=== PATIENT | female | born 1980 | race Caucasian/White ===

== ENCOUNTER 2017-10-06 23:42 | Emergency (ER) | payer SELFPAY ==
[~2017-10-06] VITALS: Ht 162.6 cm; Wt 59.0 kg
[2017-10-06] MEDS ORDERED: LACTATED RINGERS 1,000 ML IV ONE (23:55)
[2017-10-07] MEDS ORDERED: PANTOPRAZOLE 40 MG/10 ML (PROTONIX) VIAL IV ONE
[2017-10-07] MEDS ORDERED: ONDANSETRON 4 MG/2 ML (SDV) Z0FRAN IVP ONE
[2017-10-07] MEDS ORDERED: SCOPOLAMINE 1.5 MG (TRANSDERM-SCOP) PATCH TD ONE
--- NOTE | 2017-10-07 00:04 | ED GI ---
General Chief Complaint: Abdominal/GI Problems Stated Complaint: SYNCOPE N/V Nursing Triage Note: N/V and dizziness that began approx 1 hr ago while at [facility]. Sepsis Screen: No Definite Risk Source of Information: Patient, EMS History of Present Illness Time Seen By Provider: 23:45 Initial Comments PT ARRIVES VIA EMS FROM [facility]--LIVES IN [place], [place] PT STATES SHE HAD "5 [facility] ( NORMAL AMOUNT FOR PATIENT, AND DRINKS DAILY-"A COUPLE OF BEERS' ) SHE WAS DRINKING THE LAST BEER, SHE BEGAN TO FEEL NAUSEATED AND BEGAN VOMITING STATES SHE VOMITED BETWEEN 8 AND 12 TIMES "CONTINUOUS" PER PT NO DIARRHEA NO ABDOMINAL PAIN PT DENIES SYNCOPE. STATES "I JUST GOT SICK AND I WET MYSELF" C/O DIZZINESS AND NAUSEA WITH ANY MOVEMENTS PT HAS HISTORY OF METH USE-DENIES USE SINCE WAS ADMITTED TO PSYCH UNIT AT [place] IN [place] 06/2017 AND STATES SHE HAS NOT USED DRUGS SINCE THEN STATES SHE HAS LONG HISTORY OF DRUG ABUSE, BUT HAD NOT USED FOR SEVERAL YEARS, THEN HAD A RELAPSE THIS SUMMER , BEFORE SHE WAS ADMITTED TO [facility] [place]. LMP 09/24/17. NORMAL . NO CONTROL PCP: [facility] [place] [place] Allergies and Home Medications Allergies Coded Allergies: No Known Drug Allergies (Unverified , 10/06/17) Home Medications Ondansetron 4 Mg Tab.rapdis, 4 MG PO Q4H, #10 Prescribed by: DEVORAH PERDOMO on 10/07/17 0117 Review of Systems Constitutional: no symptoms reported EENTM: No Symptoms Reported Respiratory: No Symptoms Reported Cardiovascular: No Symptoms Reported Gastrointestinal: See HPI, Denies Abdominal Pain, Denies Diarrhea, Nausea, Vomiting Genitourinary: No Symptoms Reported Musculoskeletal: no symptoms reported Skin: no symptoms reported Psychiatric/Neurological: No Symptoms Reported Endocrine: No Symptoms Reported Hematologic/Lymphatic: No Symptoms Reported Past Fzgtdwz-Gbwsyi-Kcepkf Hx Patient Social History Alcohol Use: Regular Use (DRINKS "A COUPLE OF BEERS" EVERY DAY, PER PT --MALE S.O. REPORTS THAT PT DRINKS "18 BEERS A DAY" ) Number of Drinks Today: 4 Alcohol Beverage of Choice: Beer Recreational Drug Use: Yes (HISTORY OF METH USE, DENIES IV USE--STATES NO USE SINCE 06/2017, PER PT ON 10/07/17) Smoking Status: Current Everyday Smoker Type Used: Cigarettes 2nd Hand Smoke Exposure: No Recent Foreign Travel: No Contact w/Someone Who Travel: No Recent Infectious Disease Expo: No Physical Abuse: No Sexual Abuse: No Mistreated: No Fear: No Immunizations Up To Date Tetanus Booster (TDap): Unknown Surgeries History of Surgeries: Yes ( X 4) Surgeries: Section Respiratory History of Respiratory Disorde: No Cardiovascular History of Cardiac Disorders: No Neurological History of Neurological Disord: No Reproductive System : No (NO CONTROL) Last Menstrual Period: Sep 24, 2017 Hx : 4 Hx Para: 4 Female Reproductive Disorders: Denies Genitourinary History of Genitourinary Disor: No Gastrointestinal History of Gastrointestinal Di: No Musculoskeletal History of Musculoskeletal Dis: No Endocrine History of Endocrine Disorders: No HEENT History of HEENT Disorders: No Cancer History of Cancer: No Psychosocial History of Psychiatric Problem: Yes (SUBSTANCE ABUSE; PSYCH ADMIT 06/2017- [facility] IN [place]) Behavioral Health Disorders: Anxiety, Depression Suicide Risk Score: 1 Integumentary History of Skin or Integumenta: No Blood Transfusions History of Blood Disorders: No Physical Exam Vital Signs VS - Last 72 Hours, by Label 10/06/17 10/07/17 23:42 01:20 Temp 97.0 Pulse 85 74 Resp 18 18 B/P (MAP) 143/110 (121) Pulse Ox 97 99 O2 Delivery Room Air Room Air Capillary Refill : Less Than 3 Seconds General Appearance: WD/WN, other (EMOTIONAL LABILITY--CRYING THEN LAUGHING, THEN BACK TO CRYING--CRIED WHEN EMS STAFF LEFT THE ER, ETC. SPEECH CLEAR. ) HEENT: PERRL/EOMI Neck: normal inspection Respiratory: normal breath sounds, no respiratory distress, no accessory muscle use Cardiovascular: regular rate, rhythm, no murmur Gastrointestinal: normal bowel sounds, non tender, soft Extremities: normal inspection Back: normal inspection Neurologic/Psychiatric: chiropractor sole practitioner II-XII nml as tested, no motor/sensory deficits, alert, oriented x 3, other ( ABOVE) Skin: normal color, warm/dry, other (NO EXTERNAL EVIDENCE OF TRAUMA ANYWHERE) Progress/Results/Core Measures Results/Orders Lab Results Laboratory Tests Test 10/06/17 23:45 10/07/17 00:28 Range/Units White Blood Count 9.1 4.3-11.0 10^3/uL Red Blood Count 4.27 L 4.35-5.85 10^6/uL Hemoglobin 13.0 11.5-16.0 G/DL Hematocrit 38 35-52 % Mean Corpuscular Volume 89 80-99 FL Mean Corpuscular Hemoglobin 30 25-34 PG Mean Corpuscular Hemoglobin Concent 34 32-36 G/DL Red Cell Distribution Width 13.5 10.0-14.5 % Platelet Count 318 130-400 10^3/uL Mean Platelet Volume 9.3 7.4-10.4 FL Neutrophils (%) (Auto) 59 42-75 % Lymphocytes (%) (Auto) 32 12-44 % Monocytes (%) (Auto) 7 0-12 % Eosinophils (%) (Auto) 2 0-10 % Basophils (%) (Auto) 1 0-10 % Neutrophils # (Auto) 5.4 1.8-7.8 X 10^3 Lymphocytes # (Auto) 2.9 1.0-4.0 X 10^3 Monocytes # (Auto) 0.6 0.0-1.0 X 10^3 Eosinophils # (Auto) 0.2 0.0-0.3 10^3/uL Basophils # (Auto) 0.1 0.0-0.1 10^3/uL Sodium Level 139 135-145 MMOL/L Potassium Level 3.5 L 3.6-5.0 MMOL/L Chloride Level 103 98-107 MMOL/L Carbon Dioxide Level 23 21-32 MMOL/L Anion Gap 13 5-14 MMOL/L Blood Urea Nitrogen 9 7-18 MG/DL Creatinine 0.71 0.60-1.30 MG/DL Estimat Glomerular Filtration Rate > 60 BUN/Creatinine Ratio 13 Glucose Level 85 70-105 MG/DL Calcium Level 8.8 8.5-10.1 MG/DL Magnesium Level 2.4 1.8-2.4 MG/DL Total Bilirubin 0.2 0.1-1.0 MG/DL Aspartate Amino Transf (AST/SGOT) 23 5-34 U/L Alanine Aminotransferase (ALT/SGPT) 22 0-55 U/L Alkaline Phosphatase 62 40-136 U/L Total Protein 6.9 6.4-8.2 GM/DL Albumin 4.0 3.2-4.5 GM/DL Amylase Level 57 25-125 U/L Serum Test, Qualitative NEGATIVE NEGATIVE Serum Alcohol 196 H <10 MG/DL Urine Color YELLOW Urine Clarity CLEAR Urine pH 6 5-9 Urine Specific [place] 1.015 L 1.016-1.022 Urine Protein NEGATIVE NEGATIVE Urine Glucose (UA) NEGATIVE NEGATIVE Urine Ketones NEGATIVE NEGATIVE Urine Nitrite NEGATIVE NEGATIVE Urine Bilirubin NEGATIVE NEGATIVE Urine Urobilinogen NORMAL NORMAL MG/DL Urine Leukocyte Esterase NEGATIVE NEGATIVE Urine RBC (Auto) NEGATIVE NEGATIVE Urine RBC NONE /HPF Urine WBC NONE /HPF Urine Squamous Epithelial Cells 2-5 /HPF Urine Crystals NONE /LPF Urine Bacteria TRACE /HPF Urine Casts NONE /LPF Urine Mucus NEGATIVE /LPF Urine Culture Indicated NO Urine Opiates Screen NEGATIVE NEGATIVE Urine Oxycodone Screen NEGATIVE NEGATIVE Urine Methadone Screen NEGATIVE NEGATIVE Urine Propoxyphene Screen NEGATIVE NEGATIVE Urine Barbiturates Screen NEGATIVE NEGATIVE Ur Tricyclic Antidepressants Screen NEGATIVE NEGATIVE Urine Phencyclidine Screen NEGATIVE NEGATIVE Urine Amphetamines Screen NEGATIVE NEGATIVE Urine Methamphetamines Screen NEGATIVE NEGATIVE Urine Benzodiazepines Screen NEGATIVE NEGATIVE Urine Cocaine Screen NEGATIVE NEGATIVE Urine Cannabinoids Screen NEGATIVE NEGATIVE My Orders Orders - DEVORAH PERDOMO DO Saline Lock/Iv-Start (10/06/17 23:55) Monitor-Rhythm Ecg Trace Only (10/06/17 23:55) Alcohol (10/06/17 23:55) Amylase (10/06/17 23:55) Cbc With Automated Diff (10/06/17 23:55) Comprehensive Metabolic Panel (10/06/17 23:55) Drug Screen Stat (Urine) (10/06/17 23:55) Hcg,Qualitative Serum (10/06/17 23:55) Magnesium (10/06/17 23:55) Ua Culture If Indicated (10/06/17 23:55) Ondansetron Injection (Zofran Injectio (10/07/17 00:00) Saline Lock/Iv-Start (10/06/17 23:55) Lactated Ringers (Lr 1000 Ml Iv Solution (10/06/17 23:55) Scopolamine Patch (Transderm-Scop Patch) (10/07/17 00:00) Pantoprazole Injection (Protonix Injecti (10/07/17 00:00) Rx-Ondansetron Po (Rx-Zofran Po) (10/07/17 01:17) Medications Given in ED Current Medications Medications Dose Ordered Sig/Nakul Route Start Time Stop Time Status Last Admin Dose Admin Lactated Ringer's 1,000 ml @ 0 mls/hr Q0M ONCE IV 10/06/17 23:55 10/06/17 23:58 DC 10/07/17 00:10 0 MLS/HR Ondansetron HCl 8 mg ONCE ONCE IVP 10/07/17 00:00 10/07/17 00:01 DC 10/07/17 00:09 8 MG Pantoprazole 40 mg ONCE ONCE IV 10/07/17 00:00 10/07/17 00:01 DC 10/07/17 00:09 40 MG Scopolamine 1.5 mg ONCE ONCE TD 10/07/17 00:00 10/07/17 00:01 DC 10/07/17 00:10 1.5 MG Vital Signs/I&O Vital Sign - Last 12Hours 10/06/17 10/07/17 23:42 01:20 Temp 97.0 Pulse 85 74 Resp 18 18 B/P (MAP) 143/110 (121) Pulse Ox 97 99 O2 Delivery Room Air Room Air Blood Pressure Mean: 121 Progress Note : Progress Note 0020--POLICE ARE HERE, BROUGHT PT'S MALE S.O. HERE, HE HAS BEEN DRINKING. THEY HAVE REVIEWED ALL OF SURVEILLANCE VIDEO, AND PT'S DRINK WAS NEVER UNATTENDED, AND THE ONLY TIME PT WAS "ALONE" WAS WHEN SHE WAS IN THE BATHROOM FOR APPROXIMATELY 30 MINUTES. MALE S.O. STATES PT NORMALLY DRINKS "18 BEERS A DAY" NO VOMITING DURING ER STAY PT TOLERATING ICE CHIPS AND WATER AND STATES SHE IS VERY HUNGRY AND WANTS TO EAT A CHEESE BURGER AND FRIES NOW. ADVISED PT THAT SHE NEEDED TO BE ON CLEAR LIQUIDS TODAY AND NOT TRY FOOD UNTIL SHE HAS BEEN ABLE TO KEEP FLUIDS DOWN FOR AT LEAST 12 HOURS. SPEECH CLEAR AND GAIT STEADY DURING ER STAY AND AT DISMISSAL Departure Impression Impression: Primary Impression: Nausea and vomiting Additional Impression: Alcohol intoxication in active alcoholic Disposition: 01 HOME, SELF-CARE Condition: Improved Departure-Patient Inst. Patient Instructions: ALCOHOL AND SUBSTANCE ABUSE, Alcohol Use - When Is Drinking a Problem?, Nausea and Vomiting, Adult (DC) Add. Discharge Instructions: CLEAR LIQUIDS--WATER, BROTH, JELLO, GATORADE NO ALCOHOL!! NO FOOD UNTIL YOU HAVE BEEN ABLE TO KEEP CLEAR LIQUIDS DOWN FOR AT LEAST 12 HOURS WHEN NAUSEA AND VOMITING IS GONE, ADD BRATS DIET TO CLEAR LIQUIDS--BANANAS, RICE , APPLESAUCE, TOAST, SALTINES LEAVE SCOPOLAMINE PATCH IN PLACE X 3 DAYS FOLLOW UP WITH YOUR DR TOMORROW IF NO BETTER RETURN TO ER IF WORSE All discharge instructions reviewed with patient and/or family. Voiced understanding. Scripts Ondansetron (Zofran Odt) 4 Mg Tab.rapdis 4 MG PO Q4H for Nausea/Vomiting, #10 TAB Prov: DEVORAH PERDOMO DO 10/07/17 DEVORAH PERDOMO DO Oct 07, 2017 00:04
[2017-10-07 00:07] LABS: BASOPHILS # (AUTO) 0.1 10^3/uL (0.0-0.1); BASOPHILS % (AUTO) 1 % (0-10); EOSINOPHILS # (AUTO) 0.2 10^3/uL (0.0-0.3); EOSINOPHILS % (AUTO) 2 % (0-10); HEMATOCRIT 38 % (35-52); LYMPHOCYTES # (AUTO) 2.9 X 10^3 (1.0-4.0); LYMPHOCYTES % (AUTO) 32 % (12-44); MEAN CORPUSCULAR HEMOGLOBIN 30 PG (25-34); MEAN CORPUSCULAR HGB CONC 34 G/DL (32-36); MEAN CORPUSCULAR VOLUME 89 FL (80-99); MEAN PLATELET VOLUME 9.3 FL (7.4-10.4); MONOCYTES # (AUTO) 0.6 X 10^3 (0.0-1.0); MONOCYTES % (AUTO) 7 % (0-12); NEUTROPHILS # (AUTO) 5.4 X 10^3 (1.8-7.8); NEUTROPHILS % (AUTO) 59 % (42-75); PLATELET COUNT 318 10^3/uL (130-400); RED BLOOD COUNT 4.27 10^6/uL (4.35-5.85); RED CELL DISTRIBUTION WIDTH 13.5 % (10.0-14.5); WHITE BLOOD COUNT 9.1 10^3/uL (4.3-11.0)
[2017-10-07 00:20] LABS: ALANINE AMINOTRANSFERASE 22 U/L (0-55); ALKALINE PHOSPHATASE 62 U/L (40-136); AMYLASE 57 U/L (25-125); BILIRUBIN,TOTAL 0.2 MG/DL (0.1-1.0); BUN/CREATININE RATIO 13; CALCIUM 8.8 MG/DL (8.5-10.1); CARBON DIOXIDE 23 MMOL/L (21-32); CHLORIDE 103 MMOL/L (98-107); CREATININE SERUM 0.71 MG/DL (0.60-1.30); GFR ESTIMATED > 60; GLUCOSE 85 MG/DL (70-105); MAGNESIUM 2.4 MG/DL (1.8-2.4); POTASSIUM 3.5 MMOL/L (3.6-5.0); SODIUM 139 MMOL/L (135-145); TOTAL PROTEIN 6.9 GM/DL (6.4-8.2)
[2017-10-07 00:40] LABS: BILIRUBIN,URINE NEGATIVE (NEGATIVE); CLARITY,URINE CLEAR; COLOR,URINE YELLOW; GLUCOSE, URINE (UA) NEGATIVE (NEGATIVE); KETONES,URINE NEGATIVE (NEGATIVE); LEUKOCYTE ESTERASE ,URINE NEGATIVE (NEGATIVE); NITRITE,URINE NEGATIVE (NEGATIVE); PH,URINE 6 (5-9); PROTEIN,URINE NEGATIVE (NEGATIVE); UROBILINOGEN,URINE NORMAL (NORMAL)
[2017-10-07 00:50] LABS: AMPHETAMINE SCREEN, URINE NEGATIVE (NEGATIVE); BARBITURATE SCREEN URINE NEGATIVE (NEGATIVE); BENZODIAZEPINES SCREEN URINE NEGATIVE (NEGATIVE); CANNABINOID SCREEN, URINE NEGATIVE (NEGATIVE); COCAINE SCREEN URINE NEGATIVE (NEGATIVE); METHADONE STAT NEGATIVE (NEGATIVE); METHAMPHETAMINE SCREEN URINE S NEGATIVE (NEGATIVE); OPIATE SCREEN URINE NEGATIVE (NEGATIVE); OXYCODONE STAT NEGATIVE (NEGATIVE); PROPOXYPHENE STAT NEGATIVE (NEGATIVE); TRICYCLIC ANTIDEPRESSANTS SCRE NEGATIVE (NEGATIVE)
[2017-10-07 00:53] LABS: BACTERIA,URINE TRACE /HPF
[2017-10-07] MEDS ORDERED: RX-ONDANSETRON 4 MG ODT (ZOFRAN) PPK #4 PO STA (01:17)
[2017-10-07] MEDS ORDERED: ONDA4TAB8 PO (01:17)
[2017-10-07 01:20] VITALS: BP 104/68
== END 2017-10-07 01:20 | disposition home or self-care (01) ==
LOC: ER 23:46
DX: F10.229 Alcohol dependence with intoxication, unspecified (principal); R11.2 Nausea with vomiting, unspecified; F41.9 Anxiety disorder, unspecified; F32.9 Major depressive disorder, single episode, unspecified; F17.210 Nicotine dependence, cigarettes, uncomplicated; Z87.59 Personal history of other complications of pregnancy, childbirth and the puerperium
CPT/HCPCS: 36415; 80053; 80306; 80320; 81000; 82150; 83735; 84703; 85025; 93041